=== PATIENT | female | born 1995 | race Caucasian/White ===

== ENCOUNTER 2020-06-13 21:36 | Emergency (ER) | payer OTHER ==
[~2020-06-13] VITALS: Ht 165.1 cm; Wt 94.8 kg
[2020-06-13 21:45] VITALS: BP 144/99
[2020-06-13] MEDS ORDERED: IBUPROFEN 400 MG TABLET PO ONE (22:00)
[2020-06-13] MEDS ORDERED: SULFAMETH/TRIMETH 800/160 MG 1 UDTAB TABLET PO ONE (22:00)
[2020-06-13] MEDS ORDERED: CEPHALEXIN MONOHYDRATE 500 MG CAPSULE PO ONE ×2 (22:00→22:04)
[2020-06-13] MEDS ORDERED: IBUPROFEN 400 MG TABLET ONE (22:05)
[2020-06-13] MEDS ORDERED: SULFAMETH/TRIMETH 800/160 MG 1 UDTAB TABLET ONE (22:05)
== END 2020-06-13 22:23 | disposition home or self-care (01) ==
LOC: ER 21:36
DX: L03.115 Cellulitis of right lower limb (principal)